=== PATIENT | male | born 1980 | race Two or more races ===

== ENCOUNTER 2020-07-01 10:19 | Inpatient (IN) | payer MEDICAID, OTHER ==
[~2020-07-01] VITALS: Ht 165.1 cm; Wt 106.8 kg
[2020-07-01] MEDS ORDERED: ASPirin 81 mg TAB PO ONE (10:30)
[2020-07-01 11:23] LABS: Albumin 3.8 g/dL (3.4-5.0); Anion Gap 5 (5-15); Blood Urea Nitrogen 8 mg/dL (7-18); Calcium 8.8 mg/dL (8.5-10.1); Carbon Dioxide 26 mmol/L (21-32); Chloride 105 mmol/L (98-107); Glucose 106 mg/dL (74-106); Potassium 3.9 mmol/L (3.5-5.1); Sodium 136 mmol/L (136-145)
[2020-07-01 11:28] LABS: Alanine Aminotransferase 93 U/L (16-61); Alkaline Phosphatase 144 U/L (45-117); Aspartate Aminotransferase 42 U/L (15-37); BUN/Creatinine Ratio 9.5; Bilirubin, Total 0.5 mg/dL (0.2-1.0); GFR African American 130 mL/min; GFR Non-African American 107 mL/min; Total Protein 8.7 g/dL (6.4-8.2)
[2020-07-01] MEDS ORDERED: ACETAMINOPHEN 325 MG TAB PO ONE (11:30)
[2020-07-01 11:57] LABS: Basophils # (auto) 0 10 ^3/uL (0-0.2); Basophils % (auto) 0.3 % (0.0-2.0); Eosinophils # (auto) 0 10 ^3/uL (0-0.8); Eosinophils % (auto) 0.4 % (0.0-7.0); Hematocrit 47.6 % (41.0-53.0); Hemoglobin 16.5 g/dL (13.5-17.5); Lymphocytes % (auto) 31.1 % (10.0-50.0); Mean Corpuscular Hemoglobin 32.9 pg (28.0-32.0); Mean Corpuscular Hgb Conc. 34.8 g/dL (32.0-36.0); Mean Corpuscular Volume 94.7 fL (80.0-100.0); Monocytes # (auto) 0.3 10 ^3/uL (0-1.3); Monocytes % (auto) 4.4 % (0.0-12.0); Neutrophils # (auto) 4.2 10 ^3/uL (1.6-8.6); Neutrophils % (auto) 63.8 % (37.0-80.0); Nucleated Red Blood Cells % 0.2 %; Red Blood Cells 5.02 10^6/uL (4.5-5.90); Red Cell Distribution Width 13.3 % (11.8-14.3); White Blood Cell 6.6 10^3/uL (4.4-10.8)
[2020-07-01] MEDS ORDERED: NITROGLYCERIN 0.4 MG SL TAB SL ONE (12:00)
[2020-07-01] MEDS ORDERED: NITROGLYCERIN 0.4 MG SL TAB SL PRN (14:00)
[2020-07-01] MEDS ORDERED: hydrALAZINE HCL 20 MG/ML VL IV PRN (14:00)
[2020-07-01] MEDS ORDERED: ACETAMINOPHEN 500 MG TAB PO PRN (14:00)
[2020-07-01] MEDS ORDERED: MORPHINE SULFATE INJECTION 2 MG/ML SYRG IV PRN ×2 (14:00)
[2020-07-01] MEDS ORDERED: NITROGLYCERIN 0.4MG/HR TOPICAL PATCH TD ONE (14:15)
[2020-07-01] MEDS ORDERED: IOHEXOL 350 MG/ML 100ML IJ ONE (14:23)
[2020-07-01] MEDS ORDERED: ENOXAPARIN SOD 100 MG/1 ML SYRINGE SC ONE (15:15)
[2020-07-01] MEDS: ONDANSETRON HCL 4 MG/2 ML VIAL IV PRN (15:29)
[2020-07-01] MEDS ORDERED: IVERMECTIN 3 MG TAB PO ONE (16:00)
[2020-07-01 16:13] LABS: Cholesterol 152 mg/dL (< 200); Triglycerides 187 mg/dL (< 150)
[2020-07-01 16:15] LABS: HDL Cholesterol 27 mg/dL (40-59); LDL Cholesterol 101 mg/dL (< 100)
[2020-07-01] MEDS: HYDROcodone-ACET 5/325MG TAB PO PRN (20:01)
[2020-07-01] MEDS: METOPROLOL TARTRATE 25 MG TAB PO SCH ×2 (22:00→23:00)
[2020-07-01] MEDS: ATORVASTATIN 20 MG TAB PO SCH (22:00)
[2020-07-01] MEDS: ENOXAPARIN SOD 100 MG/1 ML SYRINGE SC SCH (22:00)
[2020-07-02] MEDS: HYDROcodone-ACET 5/325MG TAB PO PRN ×2 (01:28→20:28)
[2020-07-02] MEDS: ONDANSETRON HCL 4 MG/2 ML VIAL IV PRN (01:28)
[2020-07-02 01:50] VITALS: BP 110/68
[2020-07-02 06:33] LABS: Basophils # (auto) 0 10 ^3/uL (0-0.2); Basophils % (auto) 0.2 % (0.0-2.0); Eosinophils # (auto) 0 10 ^3/uL (0-0.8); Hematocrit 43.6 % (41.0-53.0); Hemoglobin 15.5 g/dL (13.5-17.5); Lymphocytes # (auto) 2.3 10 ^3/uL (0.4-5.4); Lymphocytes % (auto) 31.3 % (10.0-50.0); Mean Corpuscular Hemoglobin 33.9 pg (28.0-32.0); Mean Corpuscular Hgb Conc. 35.6 g/dL (32.0-36.0); Mean Corpuscular Volume 95.1 fL (80.0-100.0); Monocytes # (auto) 0.3 10 ^3/uL (0-1.3); Monocytes % (auto) 4.8 % (0.0-12.0); Neutrophils # (auto) 4.6 10 ^3/uL (1.6-8.6); Neutrophils % (auto) 63.7 % (37.0-80.0); Nucleated Red Blood Cells % 0.1 %; Red Blood Cells 4.58 10^6/uL (4.5-5.90); Red Cell Distribution Width 13.2 % (11.8-14.3); White Blood Cell 7.2 10^3/uL (4.4-10.8)
[2020-07-02 06:49] LABS: INR 1.03 (0.9-1.15); Partial Thromboplastin Time 33.6 sec (23.0-31.2)
[2020-07-02 07:17] LABS: BUN/Creatinine Ratio 14.3; Calcium 8.6 mg/dL (8.5-10.1)
[2020-07-02 08:00] VITALS: BP 115/71
[2020-07-02] MEDS: ASPirin-EC 81 mg tab PO SCH (09:35)
[2020-07-02] MEDS: METOPROLOL TARTRATE 25 MG TAB PO SCH ×2 (09:35→22:10)
[2020-07-02] MEDS: FAMOTIDINE 20 MG TAB PO SCH (09:36)
[2020-07-02] MEDS: ENOXAPARIN SOD 100 MG/1 ML SYRINGE SC SCH ×2 (09:36→22:10)
[2020-07-02] MEDS: NITROGLYCERIN 0.4MG/HR TOPICAL PATCH TD SCH (09:36)
[2020-07-02] MEDS: LISINOPRIL 10 MG TAB PO SCH (10:00)
[2020-07-02 16:00] VITALS: BP 121/71
[2020-07-02 21:50] VITALS: BP 135/67
[2020-07-02] MEDS: ATORVASTATIN 20 MG TAB PO SCH (22:09)
[2020-07-03] VITALS: BP 104/70
[2020-07-03 07:24] LABS: Potassium 4.2 mmol/L (3.5-5.1)
[2020-07-03 07:28] LABS: BUN/Creatinine Ratio 11.2
[2020-07-03 08:00] VITALS: BP 127/88
[2020-07-03 08:08] LABS: Basophils # (auto) 0 10 ^3/uL (0-0.2); Basophils % (auto) 0.4 % (0.0-2.0); Eosinophils # (auto) 0 10 ^3/uL (0-0.8); Eosinophils % (auto) 0.5 % (0.0-7.0); Hematocrit 45.9 % (41.0-53.0); Hemoglobin 15.9 g/dL (13.5-17.5); Lymphocytes % (auto) 42.5 % (10.0-50.0); Mean Corpuscular Hemoglobin 33.1 pg (28.0-32.0); Mean Corpuscular Hgb Conc. 34.7 g/dL (32.0-36.0); Mean Corpuscular Volume 95.5 fL (80.0-100.0); Monocytes # (auto) 0.5 10 ^3/uL (0-1.3); Neutrophils # (auto) 3.5 10 ^3/uL (1.6-8.6); Neutrophils % (auto) 49.6 % (37.0-80.0); Nucleated Red Blood Cells % 0.2 %; Red Blood Cells 4.81 10^6/uL (4.5-5.90); Red Cell Distribution Width 13.3 % (11.8-14.3)
[2020-07-03] MEDS: ASPirin-EC 81 mg tab PO SCH (09:16)
[2020-07-03] MEDS: ENOXAPARIN SOD 100 MG/1 ML SYRINGE SC SCH ×2 (09:17→22:00)
[2020-07-03] MEDS: METOPROLOL TARTRATE 25 MG TAB PO SCH ×2 (09:17→22:00)
[2020-07-03] MEDS: FAMOTIDINE 20 MG TAB PO SCH (09:17)
[2020-07-03] MEDS: LISINOPRIL 10 MG TAB PO SCH (09:17)
[2020-07-03] MEDS: NITROGLYCERIN 0.4MG/HR TOPICAL PATCH TD SCH (09:18)
[2020-07-03 15:59] VITALS: BP 108/71
[2020-07-03] MEDS: ATORVASTATIN 20 MG TAB PO SCH (22:00)
[2020-07-04] VITALS: BP 123/67
[2020-07-04 08:00] VITALS: BP 127/72
[2020-07-04 08:20] LABS: Basophils # (auto) 0 10 ^3/uL (0-0.2); Basophils % (auto) 0.3 % (0.0-2.0); Eosinophils # (auto) 0 10 ^3/uL (0-0.8); Eosinophils % (auto) 0.4 % (0.0-7.0); Hematocrit 47.5 % (41.0-53.0); Hemoglobin 16.4 g/dL (13.5-17.5); Lymphocytes # (auto) 2.7 10 ^3/uL (0.4-5.4); Lymphocytes % (auto) 40.7 % (10.0-50.0); Mean Corpuscular Hemoglobin 32.9 pg (28.0-32.0); Mean Corpuscular Hgb Conc. 34.6 g/dL (32.0-36.0); Mean Corpuscular Volume 95.1 fL (80.0-100.0); Monocytes # (auto) 0.6 10 ^3/uL (0-1.3); Monocytes % (auto) 8.3 % (0.0-12.0); Neutrophils # (auto) 3.3 10 ^3/uL (1.6-8.6); Neutrophils % (auto) 50.3 % (37.0-80.0); Nucleated Red Blood Cells % 0.1 %; Red Blood Cells 4.99 10^6/uL (4.5-5.90); Red Cell Distribution Width 12.9 % (11.8-14.3); White Blood Cell 6.6 10^3/uL (4.4-10.8)
[2020-07-04 08:47] LABS: Potassium 4.3 mmol/L (3.5-5.1)
[2020-07-04 09:02] LABS: BUN/Creatinine Ratio 14.9; Calcium 9.5 mg/dL (8.5-10.1)
[2020-07-04] MEDS: NITROGLYCERIN 0.4MG/HR TOPICAL PATCH TD SCH (10:00)
[2020-07-04] MEDS: ASPirin-EC 81 mg tab PO SCH (10:03)
[2020-07-04] MEDS: LISINOPRIL 10 MG TAB PO SCH (10:03)
[2020-07-04] MEDS: FAMOTIDINE 20 MG TAB PO SCH (10:04)
[2020-07-04] MEDS: METOPROLOL TARTRATE 25 MG TAB PO SCH (10:04)
[2020-07-04] MEDS: ENOXAPARIN SOD 100 MG/1 ML SYRINGE SC SCH (10:04)
[2020-07-04] MEDS ORDERED: CHOL1CAP47 PO (10:28)
[2020-07-04] MEDS ORDERED: ASCO500T11 PO (10:28)
[2020-07-04] MEDS ORDERED: ATOR20TA50 PO (10:28)
[2020-07-04] MEDS ORDERED: ASPI-543 PO (10:28)
[2020-07-04 12:26] VITALS: BP 127/72
== END 2020-07-04 17:29 | disposition home or self-care (01) | DRG 137 ==
LOC: ER 10:19 → TELE 10:20 → TELE-EAST 23:04
PROVIDERS: ADMIT Nurse Practitioner Acute Care; ATTEND Internal Medicine Pulmonary Disease
DX: U07.1 COVID-19 (principal); I24.9 Acute ischemic heart disease, unspecified; J12.82 Pneumonia due to coronavirus disease 2019; D68.59 Other primary thrombophilia; E66.9 Obesity, unspecified; R79.89 Other specified abnormal findings of blood chemistry; Z82.49 Family history of ischemic heart disease and other diseases of the circulatory system; Z83.3 Family history of diabetes mellitus; Z68.33 Body mass index [BMI] 33.0-33.9, adult
CPT/HCPCS: 36415; 70450; 71045; 71275; 80048; 80053; 80061; 84443; 84484; 85025; 85379; 85610; 85652; 85730; 86141; 87426; 93005; 93306; 96372; 96374; G0378; J2405

== ENCOUNTER 2023-01-09 17:15 | Emergency (ER) | payer MEDICAID ==
[~2023-01-09] VITALS: Ht 154.9 cm; Wt 113.5 kg
[~2023-01-09 17:15] MED LIST: ASCO500T11 PO; ASPI-543 PO; ATOR20TA50 PO; CHOL1CAP47 PO
[2023-01-09 17:47] VITALS: PULSE 103; RESP 18; O2SAT 94
[2023-01-09 17:48] LABS: Basophils # (auto) 0.1 10 ^3/uL (0-0.2); Basophils % (auto) 0.9 % (0.0-2.0); Eosinophils # (auto) 0.3 10 ^3/uL (0-0.8); Eosinophils % (auto) 2.7 % (0.0-7.0); Hematocrit 44.4 % (41.0-53.0); Hemoglobin 15.2 g/dL (13.5-17.5); Lymphocytes # (auto) 2.1 10 ^3/uL (0.4-5.4); Lymphocytes % (auto) 20.3 % (10.0-50.0); Mean Corpuscular Hemoglobin 32.4 pg (28.0-32.0); Mean Corpuscular Hgb Conc. 34.2 g/dL (32.0-36.0); Mean Corpuscular Volume 94.9 fL (80.0-100.0); Monocytes # (auto) 0.8 10 ^3/uL (0-1.3); Monocytes % (auto) 7.3 % (0.0-12.0); Neutrophils # (auto) 7.2 10 ^3/uL (1.6-8.6); Neutrophils % (auto) 68.8 % (37.0-80.0); Nucleated Red Blood Cells % 0.1 %; Red Blood Cells 4.68 10^6/uL (4.5-5.90); Red Cell Distribution Width 13.3 % (11.8-14.3); White Blood Cell 10.4 10^3/uL (4.4-10.8)
[2023-01-09] MEDS ORDERED: PROCHLORPERAZINE EDISYLATE 5 MG/ML 2ML VIAL IM ONE (18:00)
[2023-01-09 18:08] LABS: Albumin 3.3 g/dL (3.4-5.0); Calcium 8.8 mg/dL (8.5-10.1); Potassium 4.4 mmol/L (3.5-5.1)
[2023-01-09 18:10] LABS: BUN/Creatinine Ratio 9.5 (10.0-20.0)
[2023-01-09 18:12] LABS: Bilirubin, Total 0.4 mg/dL (0.2-1.0); Total Protein 7.5 g/dL (6.4-8.2)
[2023-01-09] MEDS ORDERED: SODIUM CHLORIDE 0.9% 1,000 ML IV ONE (18:15)
[2023-01-09] MEDS ORDERED: ACETAMINOPHEN 325 MG TAB PO ONE (18:15)
[2023-01-09 19:45] VITALS: PULSE 98; RESP 23; O2SAT 92
[2023-01-09 20:13] LABS: Urine Bacteria NONE SEEN /hpf (None Seen); Urine Blood Negative /uL (Negative); Urine Specific Gravity 1.022 (1.001-1.035); Urine WBC 1 /hpf (0 - 3)
[2023-01-09] MEDS ORDERED: IBUPROFEN 600 MG TAB PO ONE (20:30)
[2023-01-09 20:31] LABS: Alcohol, Urine < 3.0 mg/dL (0-10); Amphetamine Screen, Urine NEGATIVE (NEGATIVE); Barbiturate Scree,Urine NEGATIVE (NEGATIVE); Benzodiazephine Screen, Urine NEGATIVE (NEGATIVE); Cannabinoid Screen, Urine NEGATIVE (NEGATIVE); Cocaine Screen, Urine NEGATIVE (NEGATIVE); Opiate Scree,Urine NEGATIVE (NEGATIVE); Phencyclidine Screen, Urine NEGATIVE (NEGATIVE)
[2023-01-09 21:45] VITALS: BP 113/71; PULSE 93; RESP 15; TEMP 99.4; O2SAT 94
== END 2023-01-09 21:56 | disposition short-term general hospital (02) ==
LOC: ER 17:15
DX: R07.9 Chest pain, unspecified (principal); R51.9 Headache, unspecified; I24.9 Acute ischemic heart disease, unspecified; F32.9 Major depressive disorder, single episode, unspecified; I10 Essential (primary) hypertension; Z79.899 Other long term (current) drug therapy
CPT/HCPCS: 36415; 70450; 71045; 80053; 80307; 81001; 82550; 84484; 85025; 87040; 93005; 96360; 96372; 99285; J0780; J7030